=== PATIENT | female | born 1960 | race African-American/Black ===

== ENCOUNTER 2016-10-11 17:29 | Emergency (ER) | payer MEDICAID ==
[~2016-10-11] VITALS: Ht 160 cm; Wt 54.0 kg
[~2016-10-11 17:29] MED LIST: IOHEXOL-300 100 ML BOTTLE ONE; KEPP500 PO; LEVETIRACETAM; OMEP20TA15 PO; SODIUM CHLORIDE 0.9% 10ML VIAL ONE; THIA250T7 PO
[2016-10-11] MEDS ORDERED: ONDANSETRON HCL 4MG/2ML VIAL IV STA (17:56)
[2016-10-11] MEDS ORDERED: MORPHINE SULFATE 4 MG/ML CPJ (NOT FOR IM USE) IV STA (17:56)
[2016-10-11 18:24] LABS: BASOPHILS % 0.2 % (0.0-2.0); EOSINOPHILS % 2.4 % (0.0-5.0); HEMATOCRIT. 40.9 % (36.0-48.0); HEMOGLOBIN. 13.3 g/dL (12.0-16.0); LYMPHOCYTES % 24.6 % (20.0-50.0); MEAN CORPUSCULAR HEMOGLOBIN 29.3 pg (28.0-32.0); MEAN CORPUSCULAR VOLUME 90.5 fL (81.0-99.0); MEAN PLATELET VOLUME 9.6 fl (7.4-10.4); MONOCYTES % 6.7 % (2.0-8.0); NEUTROPHILS % 66.1 % (40.0-76.0); PLATELET 168 x1000/uL (130-400); RED BLOOD CELL COUNT 4.52 mill/uL (4.2-5.4)
[2016-10-11 18:30] LABS: PROTHROMBIN TIME 9.9 sec
[2016-10-11 18:39] LABS: CARBON DIOXIDE 26 mEq/L (21-32); CHLORIDE 112 mEq/L (98-107)
[2016-10-11 20:25] VITALS: BP 110/70
== END 2016-10-11 21:31 | disposition home or self-care (01) ==
LOC: ER 17:56
DX: L03.211 Cellulitis of face (principal); R51 Headache; F17.210 Nicotine dependence, cigarettes, uncomplicated; I69.351 Hemiplegia and hemiparesis following cerebral infarction affecting right dominant side; Z90.01 Acquired absence of eye
CPT/HCPCS: 36415; 70487; 80053; 83605; 85025; 85610; 85651; 87040; 96374; 96375; 99285; A4216; J2270; J2405; Q9967; Z7610

== ENCOUNTER 2018-02-01 21:25 | Inpatient (IN) | payer MEDICAID ==
[~2018-02-01] VITALS: Ht 152.4 cm; Wt 54.0 kg
[~2018-02-01 21:25] MED LIST changes: -IOHEXOL-300 100 ML BOTTLE ONE; -SODIUM CHLORIDE 0.9% 10ML VIAL ONE
[2018-02-01] MEDS ORDERED: SODIUM CHLORIDE 0.9% 1000ML BAG (SEPSIS BOLUS) IV ONE (23:00)
[2018-02-02] MEDS ORDERED: SODIUM CHLORIDE 0.9% 1,000 ML IV SCH (00:54)
[2018-02-02] MEDS ORDERED: CLONIDINE 0.1MG TABLET PO PRN (01:00)
[2018-02-02] MEDS ORDERED: IPRATROPIUM/ALBUTEROL 0.5-3(2.5)MG/3ML NEB INH PRN (01:00)
[2018-02-02] MEDS ORDERED: MORPHINE SULFATE 4 MG/ML CPJ (NOT FOR IM USE) IV PRN (01:00)
[2018-02-02] MEDS ORDERED: DOCUSATE SODIUM 100MG CAPSULE PO PRN (01:00)
[2018-02-02] MEDS ORDERED: ONDANSETRON HCL 4MG/2ML INJ IV PRN (01:00)
[2018-02-02] MEDS ORDERED: LORAZEPAM 2MG/ML CPJ IV PRN (01:00)
[2018-02-02] MEDS ORDERED: MAGNESIUM/ALUMINUM HYDROXIDE/SIMETHICONE 30ML UDC PO PRN (01:00)
[2018-02-02] MEDS ORDERED: NA PHOS,M-B/NA PHOS,DI-BA ENEMA 118ML PR PRN (01:00)
[2018-02-02] MEDS ORDERED: DIPHENHYDRAMINE 50MG/ML VIAL IV PRN (01:00)
[2018-02-02] MEDS ORDERED: GUAIFENESIN 200MG/10ML SUGAR FREE UDC PO PRN (01:00)
[2018-02-02 01:02] LABS: HEMATOCRIT. 40.4 % (36.0-48.0); HEMOGLOBIN. 12.7 g/dL (12.0-16.0); MEAN CORPUSCULAR HEMOGLOBIN 29.7 pg (28.0-32.0); MEAN CORPUSCULAR VOLUME 94.3 fL (81.0-99.0); MEAN PLATELET VOLUME 9.4 fl (7.4-10.4); PLATELET 203 x1000/uL (130-400); RED BLOOD CELL COUNT 4.28 mill/uL (4.2-5.4); RED CELL DISTRIBUTION WIDTH 15.9 % (11.6-14.6)
[2018-02-02 01:10] LABS: CHLORIDE 112 mEq/L (98-107)
[2018-02-02 01:41] LABS: PLATELET ESTIMATE NORMAL
[2018-02-02 02:08] LABS: CLARITY URINE CLEAR (CLEAR); COLOR URINE YELLOW (YELLOW); KETONES URINE NEGATIVE (NEGATIVE); LEUKOCYTE ESTERASE URINE TRACE (NEGATIVE); NITRITE URINE NEGATIVE (NEGATIVE); OCCULT BLOOD URINE 2+ (NEGATIVE); PROTEIN URINE 1+ (NEGATIVE); SPECIFIC GRAVITY URINE 1.016 (1.005-1.030); UROBILINOGEN URINE 0.2 E.U./dL (0.2-1.0)
[2018-02-02] MEDS ORDERED: SODIUM CHLORIDE 0.9% 1,000 ML IV ONE (02:45)
[2018-02-02] MEDS ORDERED: LEVOFLOXACIN 500MG PREMIX 100 ML IV SCH ×2 (03:00)
[2018-02-02 04:00] VITALS: BP 89/55
[2018-02-02 04:45] VITALS: BP 89/55
[2018-02-02 08:00] VITALS: BP 77/44
[2018-02-02] MEDS ORDERED: ENOXAPARIN 40MG/0.4ML SYR SUBCUT SCH (09:00)
[2018-02-02] MEDS: ENOXAPARIN 30MG/0.3ML SYR SUBCUT SCH (10:38)
[2018-02-02] MEDS: SODIUM CHLORIDE 0.9% 1,000 ML IV SCH ×2 (11:45→21:21)
[2018-02-02 12:00] VITALS: BP 103/62
[2018-02-02 15:36] LABS: LDL CHOLESTEROL 12 mg/dL (5-100)
[2018-02-02 15:38] LABS: CREATINE KINASE 140 IU/L (26-192); HDL CHOLESTEROL 8 mg/dL (40-59)
[2018-02-02 16:00] VITALS: BP_SYST 90; BP_DIAS 57; BP_DIAS 60
[2018-02-02 20:00] VITALS: BP 90/52
[2018-02-03] VITALS (79 sets, daily range): BP systolic 76–131; BP diastolic 41–84
[2018-02-03 00:23] LABS: CREATINE KINASE MB FRACTION 6.3 ng/mL (0.5-3.6)
[2018-02-03] MEDS ORDERED: SODIUM CHLORIDE 0.9% 250 ML IV SCH (01:43)
[2018-02-03] MEDS: LEVOFLOXACIN 250MG PREMIX 50 ML IV SCH (03:34)
[2018-02-03] MEDS ORDERED: PHENYLEPHRINE 20 MG in DEXT 5% WATER 250 ML IV PRN (05:58)
[2018-02-03] MEDS ORDERED: PHENYLEPHRINE 10 MG in DEXT 5% WATER 249 ML IV PRN (06:00)
[2018-02-03 07:08] LABS: CHLORIDE 124 mEq/L (98-107)
[2018-02-03 07:14] LABS: BASOPHILS % 0.1 % (0.0-2.0); EOSINOPHILS % 0.8 % (0.0-5.0); HEMOGLOBIN. 11.2 g/dL (12.0-16.0); LYMPHOCYTES % 12.2 % (20.0-50.0); MEAN CORPUSCULAR HEMOGLOBIN 30.5 pg (28.0-32.0); MEAN CORPUSCULAR VOLUME 93.1 fL (81.0-99.0); MONOCYTES % 9.3 % (2.0-8.0); NEUTROPHILS % 77.6 % (40.0-76.0); PLATELET 204 x1000/uL (130-400); RED BLOOD CELL COUNT 3.65 mill/uL (4.2-5.4); RED CELL DISTRIBUTION WIDTH 15.5 % (11.6-14.6)
[2018-02-03 07:23] LABS: CREATINE KINASE 69 IU/L (26-192)
[2018-02-03 07:24] LABS: T4 FREE 0.53 ng/dL (0.76-1.46)
[2018-02-03 07:27] LABS: CREATINE KINASE MB FRACTION 5.5 ng/mL (0.5-3.6)
[2018-02-03] MEDS ORDERED: LIDOCAINE HCL 1% 20ML VIAL (Pyxis) INJ ONE (07:49)
[2018-02-03] MEDS ORDERED: SODIUM BICARBONATE 4% (2.4MEQ) 5ML VIAL IV ONE (07:50)
[2018-02-03] MEDS: SODIUM CHLORIDE 0.9% 1,000 ML IV SCH (08:30)
[2018-02-03] MEDS: PHENYLEPHRINE 20 MG in DEXT 5% WATER 248 ML IV PRN ×4 (08:43→23:38)
[2018-02-03] MEDS: ENOXAPARIN 30MG/0.3ML SYR SUBCUT SCH (09:58)
[2018-02-03] MEDS: DEXT 5%/0.45% NACL 1000ML 1,000 ML IV SCH ×2 (11:46→21:41)
[2018-02-03] MEDS: LEVETIRACETAM 500MG TABLET PO SCH ×2 (12:36→20:06)
[2018-02-03] MEDS: METRONIDAZOLE 500 MG PREMIX 100 ML IV SCH ×2 (12:36→20:04)
[2018-02-04] VITALS (94 sets, daily range): BP systolic 55–130; BP diastolic 26–79
[2018-02-04] MEDS: LEVOFLOXACIN 250MG PREMIX 50 ML IV SCH (02:27)
[2018-02-04] MEDS ORDERED: PHENYLEPHRINE 40 MG in DEXT 5% WATER 246 ML IV PRN (02:30)
[2018-02-04] MEDS: METRONIDAZOLE 500 MG PREMIX 100 ML IV SCH ×3 (04:39→19:50)
[2018-02-04 05:52] LABS: CHLORIDE 115 mEq/L (98-107)
[2018-02-04 05:55] LABS: BASOPHILS % 0.2 % (0.0-2.0); EOSINOPHILS % 0.4 % (0.0-5.0); HEMATOCRIT. 35.8 % (36.0-48.0); HEMOGLOBIN. 11.5 g/dL (12.0-16.0); LYMPHOCYTES % 11.3 % (20.0-50.0); MEAN CORPUSCULAR HEMOGLOBIN 29.8 pg (28.0-32.0); MEAN CORPUSCULAR VOLUME 92.3 fL (81.0-99.0); MONOCYTES % 8.1 % (2.0-8.0); PLATELET 225 x1000/uL (130-400); RED BLOOD CELL COUNT 3.88 mill/uL (4.2-5.4); RED CELL DISTRIBUTION WIDTH 15.5 % (11.6-14.6)
[2018-02-04] MEDS: DEXT 5%/0.45% NACL 1000ML 1,000 ML IV SCH ×2 (07:47→17:54)
[2018-02-04] MEDS: ENOXAPARIN 30MG/0.3ML SYR SUBCUT SCH (07:48)
[2018-02-04] MEDS: LEVETIRACETAM 500MG TABLET PO SCH ×2 (07:49→21:23)
[2018-02-04] MEDS: HYDROCODONE/ACETAMINOPHEN 5/325MG TABLET PO PRN ×3 (07:49→17:57)
[2018-02-04] MEDS: NOREPINEPHRINE 16 MG in DEXT 5% WATER 234 ML IV PRN (11:41)
[2018-02-04] MEDS ORDERED: POTASSIUM CHLORIDE 20MEQ/PACKET PO NR (12:15)
[2018-02-04] MEDS ORDERED: POLYMYXIN B SULFATE/TMP 10ML BOTTLE LEFTEYE SCH (20:00)
[2018-02-05] VITALS (93 sets, daily range): BP systolic 57–133; BP diastolic 29–89
[2018-02-05] MEDS: LEVOFLOXACIN 250MG PREMIX 50 ML IV SCH (03:17)
[2018-02-05] MEDS: DEXT 5%/0.45% NACL 1000ML 1,000 ML IV SCH ×2 (03:20→13:00)
[2018-02-05] MEDS: METRONIDAZOLE 500 MG PREMIX 100 ML IV SCH ×3 (04:33→20:24)
[2018-02-05] MEDS: LEVETIRACETAM 500MG TABLET PO SCH ×2 (09:17→21:07)
[2018-02-05] MEDS: HYDROCODONE/ACETAMINOPHEN 5/325MG TABLET PO PRN (09:18)
[2018-02-05] MEDS: ENOXAPARIN 30MG/0.3ML SYR SUBCUT SCH (09:18)
[2018-02-05 12:10] LABS: CHLORIDE 116 mEq/L (98-107)
[2018-02-05] MEDS ORDERED: DOPAMINE 400MG PREMIX 250 ML IV PRN (12:30)
[2018-02-05] MEDS ORDERED: POTASSIUM CHLORIDE 20MEQ TABLET SR PO NR (12:30)
[2018-02-05] MEDS ORDERED: POTASSIUM CHLORIDE 20MEQ/PACKET PO SCH (13:45)
[2018-02-06] VITALS (78 sets, daily range): BP systolic 78–127; BP diastolic 43–75
[2018-02-06] MEDS: NOREPINEPHRINE 16 MG in DEXT 5% WATER 234 ML IV PRN (02:34)
[2018-02-06] MEDS: DEXT 5%/0.45% NACL 1000ML 1,000 ML IV SCH (02:35)
[2018-02-06] MEDS: LEVOFLOXACIN 250MG PREMIX 50 ML IV SCH (02:35)
[2018-02-06] MEDS: METRONIDAZOLE 500 MG PREMIX 100 ML IV SCH ×3 (04:23→20:36)
[2018-02-06 05:59] LABS: CHLORIDE 115 mEq/L (98-107)
[2018-02-06] MEDS: ENOXAPARIN 30MG/0.3ML SYR SUBCUT SCH (07:52)
[2018-02-06] MEDS: LEVETIRACETAM 500MG TABLET PO SCH ×2 (07:52→20:36)
[2018-02-06] MEDS: HYDROCODONE/ACETAMINOPHEN 5/325MG TABLET PO PRN ×3 (07:55→18:35)
[2018-02-06 18:39] LABS: BASOPHILS % 0.1 % (0.0-2.0); EOSINOPHILS % 0.6 % (0.0-5.0); HEMATOCRIT. 33.5 % (36.0-48.0); HEMOGLOBIN. 10.9 g/dL (12.0-16.0); LYMPHOCYTES % 10.2 % (20.0-50.0); MEAN CORPUSCULAR HEMOGLOBIN 29.7 pg (28.0-32.0); MEAN CORPUSCULAR VOLUME 91.4 fL (81.0-99.0); MEAN PLATELET VOLUME 9.1 fl (7.4-10.4); MONOCYTES % 8.3 % (2.0-8.0); NEUTROPHILS % 80.8 % (40.0-76.0); PLATELET 191 x1000/uL (130-400); RED BLOOD CELL COUNT 3.67 mill/uL (4.2-5.4); RED CELL DISTRIBUTION WIDTH 15.2 % (11.6-14.6)
[2018-02-07] VITALS (68 sets, daily range): BP systolic 35–146; BP diastolic 22–99
[2018-02-07] MEDS: LEVOFLOXACIN 250MG PREMIX 50 ML IV SCH (03:38)
[2018-02-07] MEDS: DEXT 5%/0.45% NACL 1000ML 1,000 ML IV SCH ×2 (03:39→16:23)
[2018-02-07] MEDS: METRONIDAZOLE 500 MG PREMIX 100 ML IV SCH ×3 (04:20→20:32)
[2018-02-07 05:29] LABS: CHLORIDE 114 mEq/L (98-107)
[2018-02-07] MEDS: ENOXAPARIN 30MG/0.3ML SYR SUBCUT SCH (09:14)
[2018-02-07] MEDS: LEVETIRACETAM 500MG TABLET PO SCH ×2 (09:14→21:06)
[2018-02-07] MEDS: ACETAMINOPHEN 325MG TABLET PO PRN ×2 (09:42→20:32)
[2018-02-07] MEDS ORDERED: HYDROCODONE/ACETAMINOPHEN 5/325MG TABLET PO PRN (13:45)
[2018-02-07] MEDS ORDERED: VANCOMYCIN 1 G PREMIX 200 ML IV SCH (16:00)
[2018-02-08] VITALS (8 sets, daily range): BP systolic 93–105; BP diastolic 52–64
[2018-02-08] MEDS: DEXT 5%/0.45% NACL 1000ML 1,000 ML IV SCH (00:24)
[2018-02-08] MEDS: LEVOFLOXACIN 250MG PREMIX 50 ML IV SCH (02:41)
[2018-02-08] MEDS: ACETAMINOPHEN 325MG TABLET PO PRN (02:42)
[2018-02-08] MEDS ORDERED: VANCOMYCIN 750 MG PREMIX 150 ML IV SCH ×2 (04:00→18:00)
[2018-02-08] MEDS: METRONIDAZOLE 500 MG PREMIX 100 ML IV SCH (05:14)
[2018-02-08] MEDS: ENOXAPARIN 30MG/0.3ML SYR SUBCUT SCH (10:11)
[2018-02-08] MEDS: LEVETIRACETAM 500MG TABLET PO SCH (10:11)
[2018-02-23] MEDS ORDERED: APIX2.5T MT (15:53)
== END 2018-02-08 14:10 | disposition home or self-care (01) | DRG 720 ==
LOC: ER 21:25 → 5WST 02-02 00:42 → ENRESERV 02-02 03:07 → MICUSO 02-03 07:01 → 6WST 02-07 17:42
PROVIDERS: ADMIT Internal Medicine; ATTEND Internal Medicine
PROC: 05H933Z Insertion of Infusion Device into Right Brachial Vein, Percutaneous Approach (ICD-10-PCS; principal; 2018-02-03)
PROC: B54MZZA Ultrasonography of Right Upper Extremity Veins, Guidance (ICD-10-PCS; 2018-02-03)
DX: A41.9 Sepsis, unspecified organism (principal); N17.0 Acute kidney failure with tubular necrosis; R65.21 Severe sepsis with septic shock; E43 Unspecified severe protein-calorie malnutrition; E87.0 Hyperosmolality and hypernatremia; I95.9 Hypotension, unspecified; E86.0 Dehydration; K52.9 Noninfective gastroenteritis and colitis, unspecified; E86.1 Hypovolemia; E87.6 Hypokalemia; F17.210 Nicotine dependence, cigarettes, uncomplicated; G40.909 Epilepsy, unspecified, not intractable, without status epilepticus; H54.62 Unqualified visual loss, left eye, normal vision right eye; I10 Essential (primary) hypertension; Z82.49 Family history of ischemic heart disease and other diseases of the circulatory system; Z86.73 Personal history of transient ischemic attack (TIA), and cerebral infarction without residual deficits; Z86.79 Personal history of other diseases of the circulatory system; Z98.2 Presence of cerebrospinal fluid drainage device; Z79.899 Other long term (current) drug therapy; Z93.0 Tracheostomy status; Z68.23 Body mass index [BMI] 23.0-23.9, adult
CPT/HCPCS: 36415; 36569; 70450; 71045; 74018; 74176; 76937; 80048; 80053; 80061; 81003; 82550; 82553; 82962; 83036; 83605; 83690; 83880; 84134; 84439; 84443; 84484; 85025; 85379; 87040; 87045; 87070; 87077; 87493; 93005; 93306; 96361; 96374; 99285; A6261; C1725; C1769; C1893; J1265; J1650; J1956; J2370; J3370; J3490; J7030; J7040; J7050; J7060